=== PATIENT | male | born 1970 | race Caucasian/White ===

== ENCOUNTER 2017-01-04 12:39 | Emergency (ER) | payer MEDICAID, OTHER ==
[2017-01-04 12:42] VITALS: BMI 27.7
--- NOTE | 2017-01-04 12:54 | ED PDOC ---
Arrival/HPI - General Historian: Patient <Chino Vang - Last Filed: 01/04/17 22:02> <Racheal Ricks - Last Filed: 01/04/17 22:28> - General Chief Complaint: Abnormal Skin Integrity Time Seen by Provider: 01/04/17 12:53 - History of Present Illness Narrative History of Present Illness (Text): 01/04/17 12:54 46 y/o male, no significant pmh, nkda, c/o rt. hand 3rd digit finger pain and swelling x 3-4 days. Aching pain, associated with the swelling, no numbness or tingling, no fever or chills, no night sweat, no palpitation, no rash, no trauma , doesn't know how it happened, no other medical or psychological complaints. ( Chino Vang) Past Medical History - Provider Review Nursing Documentation Reviewed: Yes - Cardiac Hx Hypertension: Yes - Pulmonary Hx Respiratory Disorders: No - Neurological Hx Neurological Disorder: No - HEENT Hx HEENT Disorder: No - Renal Hx Renal Disorder: No - Endocrine/Metabolic Hx Endocrine Disorders: No - Hematological/Oncological Hx Blood Disorders: No - Integumentary Hx Dermatological Disorder: No - Musculoskeletal/Rheumatological Hx Musculoskeletal Disorders: No - Gastrointestinal Other/Comment: AP - Genitourinary/Gynecological Hx Genitourinary Disorders: No - Psychiatric Hx Depression: No Hx Emotional Abuse: No Hx Physical Abuse: No Hx Substance Use: Yes - Surgical History Hx Appendectomy: Yes - Anesthesia Hx Anesthesia: Yes - Suicidal Assessment Feels Threatened In Home Enviroment: No <Chino Vang - Last Filed: 01/04/17 22:02> Family/Social History - Physician Review Nursing Documentation Reviewed: Yes Family/Social History: Unknown Family HX Smoking Status: Current Some Days Smoker Hx Alcohol Use: Yes Hx Substance Use: Yes Substance used: MARIJUANA <Chino Vang - Last Filed: 01/04/17 22:02> Allergies/Home Meds <Chino Vang - Last Filed: 01/04/17 22:02> <Racheal Ricks - Last Filed: 01/04/17 22:28> Allergies/Adverse Reactions: Allergies No Known Allergies Allergy (Verified 01/04/17 16:41) Review of Systems - Review of Systems Constitutional: absent: Fatigue, Fevers Eyes: absent: Vision Changes ENT: absent: Hearing Changes Respiratory: absent: SOB, Cough Cardiovascular: absent: Chest Pain Gastrointestinal: absent: Abdominal Pain, Diarrhea, Nausea, Vomiting Skin: absent: Rash, Pruritis, Skin Lesions, Ulcer Neurological: absent: Headache <Chino Vang Q - Last Filed: 01/04/17 22:02> Physical Exam Vital Signs Reviewed: Yes Temperature: Afebrile Blood Pressure: Normal Pulse: Regular Respiratory Rate: Normal Appearance: Positive for: Well-Appearing, Non-Toxic, Comfortable Pain Distress: Moderate Mental Status: Positive for: Alert and Oriented X 3 - Systems Exam Head: Present: Atraumatic, Normocephalic Pupils: Present: PERRL Extroacular Muscles: Present: EOMI Conjunctiva: Present: Normal Mouth: Present: Moist Mucous Membranes Neck: Present: Normal Range of Motion Respiratory/Chest: Present: Clear to Auscultation, Good Air Exchange. No: Respiratory Distress, Accessory Muscle Use Cardiovascular: Present: Regular Rate and Rhythm, Normal S1, S2. No: Murmurs Abdomen: Present: Normal Bowel Sounds. No: Tenderness, Distention, Peritoneal Signs Back: Present: Normal Inspection Upper Extremity: Present: Normal Inspection, Other (Rt. hand 3rd digi: visible swelling and palpable swelling with felon noted on the ventral aspect of the finger pads, no tenderness on the extensor or flexor tendons regions, FROM without limitation except pain with movement of the DIPJ, sensation intact, motor 5/5, +radial pulse, capillary refill< 2 seconds, neurovascular intact). No: Cyanosis, Edema Lower Extremity: Present: Normal Inspection. No: Edema Neurological: Present: GCS=15, Speech Normal, Motor Func Grossly Intact, Gait Normal, Memory Normal Skin: Present: Warm, Dry, Normal Color. No: Rashes Psychiatric: Present: Alert, Oriented x 3, Normal Insight, Normal Concentration <Chino Vang Q - Last Filed: 01/04/17 22:02> Vital Signs Temp Pulse Resp BP Pulse Ox 01/04/17 15:29 98 F 59 L 20 117/61 98 01/04/17 15:07 53 L 20 115/71 100 01/04/17 13:08 60 18 127/77 97 01/04/17 12:44 98.4 F 62 16 114/66 97 Medical Decision Making - Lab Interpretations I have reviewed the lab results: Yes Interpretation: No clinic. lab abnormalty - RAD Interpretation [employer] Manager: Radiologist <Chino Vang - Last Filed: 01/04/17 22:02> <Racheal Ricks - Last Filed: 01/04/17 22:28> ED Course and Treatment: 01/04/17 13:24 -labs/blood culture/vbg -rt. hand 3rd digit xray -IV vancomycin/toradol 01/04/17 14:28 -Sonogram performed on the bed side by me show there is multinoculated fluid filled cavities, likely abscess. -Labs are non-significant -Lactic acid within normal limit -There is no hand surgeon to be consulted in this [facility] and the orthopedic incident response engineer today is Dr. Mendoza which he is not a hand specialist, will try [facility] and [facility] arrange for transfer. -Discussed with the patient about the labs/situation. 01/04/17 14:56 -There is no signs of tenosynovitis -Xray show no osteolytic changes -There is no procedures or skin cuttings on the patient as I am waiting for the hand specialist to be consulted regarding about the plan of care. -Pt. doesn't wanna wait for the specialist or transfer, stated that he wants to leave the ER and go to another hospital since there is no hand specialist here despite I tell him that I am trying to transfer him by contacting the hand specialists. Pt. stated that he wants to leave, wants to sign out against medical advice. DR. Ricks is awared AMA ER The patient refuses to stay in the Emergency Room (ER) to continue the care and wishes to leave the emergency department against my medical advice. Patient was told that staying in the ER is necessary and a full explanation of the reasons why was given, and understood by the patient with alert and oriented x4. The risk of leaving were explained in laymans term and including but not limited to felon, worsening of the felon which can led to tenosynovitis, ischemia, pain , worsening of condition, permanent disability and from an undiagnosed or untreated condition. The patient accepts these risks, and is in my judgment is competent and capable of understanding the clinical situation and explanation of the risk of leaving. Patient was given the opportunity to ask questions and change mind. The patient was instructed regarding the best care for the present symptoms, and to follow up as soon as possible with the primary care doctor including specialist or return to the emergency department at an y time for continuing care. YOU ARE GIVEN KEFLEX/BACTRIM/MOTRIN BECAUSE YOU DO NOT WANT TO CONTINUE THE CARE AT THIS HOSPITAL. YOU SIGN YOURSELF OUT AGAINST MEDICAL ADVICE. YOU ARE ADVICE TO BE SEEN BY THE HAND SPECIALIST AND POSSIBLE ADMISSION. YOU HAVE TO FOLLOW UP WITH YOUR OWN PMD AND SPECIALIST SOON POSSIBLE, YOU CAN RETURN TO THIS HOSPITAL IF YOU WOULD LIKE TO CONTINUE THE CARE. (Chino Vang) 01/04/17 15:26 Patient seen and examined. Findings consistent with a felon; no evidence of tenosynovitis. Patient will need discussion / consultation with hand physician and potential I&D either here or to be done by hand physician with potential transfer. (Racheal Ricks) - Lab Interpretations Lab Results: 01/04/17 13:40 01/04/17 13:40 Lab Results 01/04/17 13:40: WBC 7.5, RBC 4.14, Hgb 12.9 L, Hct 38.0 L, MCV 91.8, MCH 31.2, MCHC 33.9, RDW 11.8, Plt Count 206, MPV 10.3, Gran % 63.4, Lymph % (Auto) 23.8, Snyder % (Auto) 8.5 H, Eos % (Auto) 4.2, Baso % (Auto) 0.1, Gran # 4.77, Lymph # 1.8, Snyder # 0.6, Eos # 0.3, Baso # 0.01 01/04/17 13:40: Sodium 139, Chloride 105, Potassium 4.0, Carbon Dioxide 24, Anion Gap 14, BUN 16, Creatinine 1.1, Est GFR ( Amer) > 60, Est GFR (Non- Af Amer) > 60, Random Glucose 94, Calcium 8.7, Total Bilirubin 0.6, AST 49, ALT 46, Alkaline Phosphatase 91, Total Protein 6.7, Albumin 4.1, Globulin 2.6, Albumin/Globulin Ratio 1.6 01/04/17 13:40: pO2 149 H, VBG pH 7.42, VBG pCO2 43.0, VBG HCO3 27.9, VBG Total CO2 29.2 H, VBG O2 Sat (Calc) 99.1 H, VBG Base Excess 2.9 H, VBG Potassium 4.2, Sodium 137.0, Chloride 107.0, Glucose 98, Lactate 0.7, FiO2 21.0, Venous Blood Potassium 4.2 - RAD Interpretation Radiology Orders: 01/04/17 13:17 HAND RIGHT 3RD DIGIT (FINGER) [RAD] Stat 01/04/17 13:17 HAND RIGHT 3RD DIGIT (FINGER) [RAD] Stat normal right middle finger radiograph (Chino Vang) - Medication Orders Current Medication Orders: Discontinued Medications Sodium Chloride (Sodium Chloride 0.9%) 1,000 mls @ 999 mls/hr IV .Q1H1M STA Stop: 01/04/17 14:17 Last Admin: 01/04/17 13:41 Dose: 999 mls/hr eMAR Start Stop Document 01/04/17 13:41 CNR (Rec: 01/04/17 13:41 CNR [place] [id number]) Intravenous Solution Start Date 01/04/17 Start Time 13:41 Vancomycin HCl (Vancomycin 1gm) 1 gm in 250 mls @ 167 mls/hr IVPB STAT STA PRN Reason: Protocol Stop: 01/04/17 14:46 Last Admin: 01/04/17 13:39 Dose: 167 mls/hr eMAR Start Stop Document 01/04/17 13:39 CNR (Rec: 01/04/17 13:40 CNR [place] [id number]) Intravenous Solution Start Date 01/04/17 Start Time 13:40 End Date 01/04/17 End time 15:28 Total Infusion Time 108 Ketorolac Tromethamine (Toradol) 30 mg IVP STAT STA Stop: 01/04/17 13:18 Last Admin: 01/04/17 13:40 Dose: 30 mg MAR Pain Assessment Document 01/04/17 13:40 CNR (Rec: 01/04/17 13:40 CNR [place] [id number]) Pain Reassessment Is this a pain reassessment? Yes Sleep Is patient sleeping during reassessment? No Presence of Pain Presence of Pain Yes Pain Scale Used Pain Scale Used Numeric Location Left, Right or Bilateral Right Pain Location Body Site Middle Finger Description Description Constant IVP Administration Document 01/04/17 13:40 CNR (Rec: 01/04/17 13:40 CNR [place] [id number]) Charges for Administration # of IVP Administrations 1 Re-Assess: VIVIANA Pain Assessment Document 01/04/17 14:40 GMI (Rec: 01/04/17 15:27 GMI [id number]) Pain Reassessment Is this a pain reassessment? Yes Sleep Is patient sleeping during reassessment? No Presence of Pain Presence of Pain No - PA / SHANK CEMENTER HAND / Resident Statement JUSTYNA has reviewed & agrees with the documentation as recorded. / has examined the patient and agrees with the treatment plan. <Chino Vang - Last Filed: 01/04/17 22:02> - PA / SHANK CEMENTER HAND / Resident Statement JUSTYNA has reviewed & agrees with the documentation as recorded. / has examined the patient and agrees with the treatment plan. <Racheal Ricks - Last Filed: 01/04/17 22:28> Disposition/Present on Arrival - Present on Arrival Any Indicators Present on Arrival: No History of DVT/PE: No History of Uncontrolled Diabetes: No Urinary Catheter: No History of Decub. Ulcer: No History Surgical Site Infection Following: None - Disposition Have Diagnosis and Disposition been Completed?: Yes Disposition Time: 14:59 <Chino Vang - Last Filed: 01/04/17 22:02> <Racheal Ricks - Last Filed: 01/04/17 22:28> - Disposition Diagnosis: Felon, Finger swelling Disposition: AGAINST MEDICAL ADVICE Condition: STABLE Additional Instructions: YOU ARE GIVEN KEFLEX/BACTRIM/MOTRIN BECAUSE YOU DO NOT WANT TO CONTINUE THE CARE AT THIS HOSPITAL. YOU SIGN YOURSELF OUT AGAINST MEDICAL ADVICE. YOU ARE ADVICE TO BE SEEN BY THE HAND SPECIALIST AND POSSIBLE ADMISSION. YOU HAVE TO FOLLOW UP WITH YOUR OWN PMD AND SPECIALIST SOON POSSIBLE, YOU CAN RETURN TO THIS HOSPITAL IF YOU WOULD LIKE TO CONTINUE THE CARE. Prescriptions: Cephalexin [Keflex] 500 mg PO QID #40 capsule Ibuprofen [Motrin] 600 mg PO QID PRN #30 tab PRN Reason: Other Sulfamethoxazole/Trimethoprim [Bactrim Ds Tablet] 1 each PO BID #20 tablet Referrals: PCP,NO [Primary Care Provider] - Follow up with primary [facility] [place] [Outside] - Follow up with primary [facility] [Outside] - Follow up with primary Forms: [email or web address] ([place] Citizen), WORK NOTE
[2017-01-04] MEDS ORDERED: Sodium Chloride 0.9% 1,000 ML IV STA (13:17)
[2017-01-04] MEDS ORDERED: Vancomycin 1gm in NS 250ml 1 GM/250 ML BAG IVPB STA (13:17)
[2017-01-04 14:02] LABS: BASO # 0.01 K/mm3 (0.0-2.0); BASO % 0.1 % (0.0-3.0); EOS # 0.3 (0.0-0.7); EOS % 4.2 % (1.5-5.0); GRAN # 4.77 (1.4-6.5); GRAN % 63.4 % (50.0-68.0); LYMPH # 1.8 (1.2-3.4); LYMPH % 23.8 % (22.0-35.0); MEAN CELL VOLUME 91.8 fl (80.0-105.0); MEAN CORPUSCULAR HEMOGLOBIN 31.2 pg (25.0-35.0); MEAN CORPUSCULAR HGB CONC 33.9 g/dl (31.0-37.0); MEAN PLATELET VOLUME 10.3 fl (7.0-11.0); MONO # 0.6 (0.1-0.6); MONO % 8.5 % (1.0-6.0); RED CELL DISTRIBUTION WIDTH 11.8 % (11.5-14.5); WHITE BLOOD COUNT 7.5 10^3/ul (4.5-11.0)
[2017-01-04 14:03] LABS: VENOUS BLOOD GAS BASE EXCESS 2.9 mmol/L (0.0-2.0); VENOUS BLOOD PH 7.42 (7.32-7.43)
[2017-01-04 14:13] LABS: ALB/GLOB RATIO 1.6 (1.1-1.8); ALKALINE PHOSPHATASE 91 U/L (38-126); ALT/SGPT 46 U/L (7-56); AST/SGOT 49 U/L (17-59); BILIRUBIN,TOTAL 0.6 mg/dL (0.2-1.3); BLOOD UREA NITROGEN 16 mg/dL (7-21); CALCIUM 8.7 mg/dL (8.4-10.5); CARBON DIOXIDE 24 mmol/L (21-33); CHLORIDE 105 mmol/L (98-107); GFR AFRICAN-AMERICAN > 60; GLUCOSE,RANDOM 94 mg/dL (70-110); SODIUM 139 mmol/L (132-148); TOTAL PROTEIN 6.7 g/dL (5.8-8.3)
[2017-01-04 15:08] VITALS: RESP 20
--- NOTE | 2017-01-04 15:29 | RAD ---
PROCEDURE: Right middle finger radiographs. HISTORY: rt. hand 3rd digit ventral swelling COMPARISON: None. TECHNIQUE: AP radiograph of the right hand, as well as spot oblique and lateral images of right middle finger were obtained. FINDINGS: RIGHT MIDDLE FINGER: Right middle finger normal, without fracture of focal lesion. No osseous erosion or periosteal reaction. Remainder of the right hand (as seen on the AP view) grossly unremarkable. JOINTS: Normal. SOFT TISSUES: Soft tissue swelling distal phalanx 3rd digit. OTHER FINDINGS: None. IMPRESSION: Normal right middle finger radiographs.
[2017-01-04 15:30] VITALS: BP 117/61; PULSE 59; TEMP 98; O2SAT 98
== END 2017-01-04 15:30 | disposition left against medical advice (07) ==
LOC: ED 12:39
DX: L03.011 Cellulitis of right finger (principal); M79.89 Other specified soft tissue disorders
CPT/HCPCS: 73140; 80053; 82803; 85025; 96365; 96366; 96375; 99285; J1885; J7040